=== PATIENT | male | born 1950 | race Caucasian/White ===

== ENCOUNTER 2018-04-25 22:53 | Emergency (ER) | payer OTHER, SELFPAY ==
[2018-04-25 22:53] VITALS: BP 126/72; PULSE 79; RESP 18; TEMP 37.1; TEMP 37.6; O2SAT 98; BMI 26.4
--- NOTE | 2018-04-25 23:14 | ED.VISSUMM ---
- ER Visit Summary Date of Service: 04/25/18 Chief Complaint: Right-sided abdominal pain History of Present Illness: The patient is a 67 M with right-sided abdominal pain that started yesterday. Pain has become much more severe in the last 24 hours. Denies change in pain when he eats. He has not eaten in 8 hours. He denies nausea, vomiting, or diarrhea. He does report a fever to 101 this evening. Past history significant for bariatric surgery 10 years ago. He states he had a duodenal switch. He also has a history of atrial fibrillation and underwent ablation earlier this year. He is no longer on anticoagulants. Physical Examination: Vital signs are unremarkable. Patient sitting upright in bed. He appears uncomfortable but he is in no acute distress. Head neck examination is normal. Heart is regular rate and rhythm. Lung sounds are clear. Abdomen is soft with tenderness in the right abdomen, both upper and lower quadrants. There is no guarding or rebound. Hypoactive bowel sounds are noted. Test Results: CBC was normal white count. Hemoglobin is 12.4. Chemistry studies are normal. LFTs are significant for an AST of 40 and an alk phos of 142. Lipase is normal. Urinalysis is unremarkable. Portable chest x-ray shows bilateral basilar atelectasis. Emergency Department Course and Treatment: Patient was treated morphine, Zofran, and IV fluids. On repeat evaluation he stated his abdominal pain was not really improved, but his limbs felt heavy from the morphine. He was offered another dose and it was ordered. On repeat vital sign check temperature is now 100.6. Tylenol is ordered for fever. CT scan of the abdomen and pelvis is obtained and per my read reveals emphysematous cholecystitis. He has air in the posterior wall of the gallbladder. There is significant pericholecystic fluid. I spoke with both surgery groups here at [place] who feel patient should be transferred. Patient has been accepted at [facility]. Treatment Plan: [] Disposition: Transfer Impression: Emphysematous cholecystitis This note was generated with [employer] dictation software. It may contain incorrect words, spelling, and punctuation that were not noted in review of the chart prior to signing ED Disposition - Plan for ED Patient: Chief Complaint: Abd Pain Referrals: Care Physician,No Primary [Primary Care Provider] -
[2018-04-25] MEDS: Ondansetron 4 MG/2 ML Vial IV (23:23)
[2018-04-25] MEDS: 0.9% Normal Saline 1,000 ML 150 ML IV (23:23)
[2018-04-25] MEDS: Morphine 4 MG/ML Syringe IV (23:23)
[2018-04-25 23:32] LABS: Absolute Lymphocyte Count 0.76 X10^3/ul (0.83-4.51); Absolute Neutrophil Count 7.9 X10^3/uL (2.0-7.7); Basophil# 0.05 X10^3/uL; Basophil% 0.5 % (0-1); Eosinophil# 0.46 X10^3/uL; Eosinophils% 4.2 % (0-5); Hematocrit 37.4 % (40-54); Hemoglobin 12.4 g/dl (13.0-16.5); Lymphocyte # 0.76 X10^3/ul (4.0); Mean Corp Hgb Conc 33.2 g/gl (32-36); Mean Corpuscular Hgb 29.6 pg (27.0-32.0); Mean Corpuscular Volume 89.3 fL (80-94); Mean Platelet Vol. 10.5 fl (6.2-12.0); Monocyte% 15.7 % (0-10); Neutrophil # 7.87 X10^3/uL (2.7-7.7); Neutrophil % 72.5 % (47-70); Platelet Count 213 K/mm3 (150-450); RBC Distribution Width CV 15.5 % (11.6-14.6); RBC Distribution Width SD 50.6 fl (35.1-43.9); Red Blood Count 4.19 M/mm3 (4.6-6.2); White Blood Count 10.9 K/mm3 (4.4-11.0)
[2018-04-25 23:34] LABS: Differential Indicated SCAN CRITERIA MET; POSITIVE COUNT NO; POSITIVE DIFFERENTIAL YES; POSITIVE MORPHOLOGY NO
[2018-04-25 23:39] LABS: Bacteria 0 SEEN /hpf (None Seen); Mucous, Urine 0 SEEN /hpf (<or=2+); Red Blood Cells-Urine 0 SEEN /hpf (0-5); White Blood Cells 0 SEEN /hpf (0-5)
[2018-04-25 23:43] LABS: AST(SGOT) 40 U/L (15-37); Alanine Aminotransfer ALT/SGPT 32 U/L (16-61); Albumin, Serum 3.3 g/dL (3.2-5.0); Alkaline Phosphatase 142 U/L (45-117); Anion Gap 8 (5-15); BUN 16 mg/dL (7-18); BUN/Creat Ratio 14.3 RATIO (10-20); Bilirubin, Direct 0.13 mg/dL (0.00-0.30); Calcium,Total 8.5 mg/dL (8.5-10.1); Chloride 105 mmol/L (98-107); Creatinine, Serum 1.12 mg/dL (0.70-1.30); EST Glomerular Filtration Rate 69 mL/min (>60); Est Glom Filt Rate - Afr Amer 84 mL/min (>60); Estimated Creatinine Clearance 67.23 ml/min; Globulin 4.5 g/dL (2.2-4.2); Glucose 98 mg/dL (74-106); Lipase 116 U/L (73-393); Potassium 4.7 mmol/L (3.5-5.1); Protein, Total 7.8 g/dL (6.4-8.2); Sodium Level 136 mmol/L (136-145)
[2018-04-25 23:45] LABS: Color, Urine Yellow (Yellow); Glucose, Dipstick Normal (Normal); Ketone-Dipstick Negative (Negative); Leukocyte Esterase-Dipstick Negative /ul (Negative); Nitrite-Dipstick Negative (Negative); Occult Blood-Urine Negative /ul (Negative); Protein-Dipstick 15 mg/dl (Negative); Specific Gravity, Urine 1.015 (1.002-1.030); Urine Bilirubin Dipstick Negative (Negative); Urine Clarity Clear (Clear); Urine Urobilinogen Normal (Normal)
[2018-04-25 23:54] LABS: Squamous Epithelial Cells - UA 0-5 SEEN /hpf (0-5)
[2018-04-26] VITALS (12 sets, daily range): BP systolic 90–136; BP diastolic 59–82; PULSE 69–85; RESP 17–21; TEMP 37.1–38.1; O2SAT 92–95
[2018-04-26] MEDS: Morphine 4 MG/ML Syringe IV (00:18)
[2018-04-26] MEDS: Acetaminophen 325 MG Tablet 650 MG PO (00:27)
--- NOTE | 2018-04-26 00:30 | RAD_ITS ---
STUDY: X-RAY CHEST REASON FOR EXAM: Male, 67 years old. Abdominal pain. TECHNIQUE: Single AP portable view of the chest. COMPARISON: Prior comparison studies are not available for review at this time. FINDINGS: Cardiac monitoring leads are present. The lungs are underexpanded with crowding the bronchovascular markings and obscuration of lung bases. There is suggestion for bilateral basilar airspace disease and/or atelectasis. There is no demonstrated pleural abnormality. There is borderline cardiomegaly. Normal mediastinum and waldemar. There is prominence of the pulmonary hilar arteries without peripheral pulmonary vascular congestion. There is atherosclerotic calcification of the aortic arch with tortuosity. There is demineralization of the osseous structures. Normal visualized ribs, clavicles, and shoulders. There is no demonstrated abnormality of the visualized soft tissue structures of the upper abdomen. RAD/Chest 1 View (Portable) IMPRESSION: Expiratory chest radiograph with bilateral basilar atelectasis and/or airspace disease. Electronically Signed: Melia Cortes MD at 1:26 EDT , Service support ,
--- NOTE | 2018-04-26 00:50 | CT_ITS ---
STUDY: CT ABDOMEN AND PELVIS WITH CONTRAST REASON FOR EXAM: Male, 67 years old. Right-sided abdominal pain for 24 hours. Patient had bariatric surgery 10 years ago. RADIATION DOSAGE (If Supplied By Facility): CTDIvol = ( 18.71 ) mGy, DLP = ( 1174.16 ) mGycm TECHNIQUE: Transaxial images were obtained from the dome of the diaphragm to the symphysis pubis without oral contrast. 100 ml of Isovue 300 contrast was administered. Sagittal and coronal images were reconstructed. Individualized dose optimization techniques were used for this CT. COMPARISON: Prior comparison studies are not available for review at this time. FINDINGS: There is bilateral basilar airspace consolidation and atelectasis. The visualized portions of the heart are within normal limits. There is mild periportal edema within the liver. This may be the result of hepatitis or overhydration. No liver masses are identified. The gallbladder is very distended. There is pericholecystic fluid and enhancement gallbladder wall suggesting sequela of acute cholecystitis. Multiple gallstones are visualized. Normal spleen. There is diffuse atrophy of the pancreas. Normal bilateral adrenal glands. There are multiple nonobstructing renal calculi with the largest measuring approximately 6.7 mm. There are small lucencies visible within both kidneys that may represent tiny cysts. There is focal parenchymal loss from the upper pole of the right kidney that may be the result of previous ischemia or infection. There is no obvious hydronephrosis, hydroureter or radiopaque ureteral calculus. There is a small hiatal hernia. There is no evidence for dilated bowel, ascites or pneumoperitoneum. Surgical sutures are visible in the stomach is consistent with history of bariatric surgery. The small bowel has a grossly normal appearance. There is stool visible throughout the colon. The appendix is visualized and appears normal. Medulla aorta is mildly tortuous. Normal inferior vena cava. Normal retroperitoneum. Normal urinary bladder. There are prostatic calcifications. There appears to be a left-sided inguinal hernia containing small bowel. This could represent an incarcerated hernia. There is no evidence for dilated bowel. There is multilevel thoracic spondylosis. There are multilevel degenerative changes of the lumbar spine. CT/Abdomen/Pelvis WITH Contrast IMPRESSION: 1. CT findings suggest sequela of acute cholecystitis. 2. Possible fecal stasis. 3. Left inguinal hernia with incarcerated small bowel. 4. Nonobstructing renal calculi. Electronically Signed: Melia Cortes MD at 2:14 EDT , Service support ,
--- NOTE | 2018-04-26 01:33 | NURSING ---
[facility] PAGED AT [address] HERRREA.
[2018-04-26] MEDS: HYDROmorphone 0.5 MG/0.5 ML SYRINGE IV (01:44)
[2018-04-26] MEDS: 0.9% Normal Saline 1,000 ML 500 ML IV (03:04)
--- NOTE | 2018-04-26 03:04 | ED.RN ---
PER DR. SHARON NELSON A 1000 CC'S NS BOLUS D/T LOW BLOOD PRESSURE OF 97/65. NS BOLUS HUNG BY THIS NURSE.
--- NOTE | 2018-04-26 03:40 | ED.RN ---
[facility] CAME TO GET PATIENT BUT THEY WERE NOT A [facility] SO THEY COULD NOT TAKE PATIENT NOW THAT WE HAVE FLUIDS RUNNING TO MAINTAIN HIS BLOOD PRESSURE.
--- NOTE | 2018-04-26 03:41 | ED.RN ---
[facility] CALLED A [facility] TO COME AND GET HIM.
[2018-04-26] MEDS: 0.9% Normal Saline 1,000 ML 250 ML IV (04:07)
[2018-04-26] MEDS: fentaNYL 100 MCG/2 ML Ampul 25 MCG IV (04:30)
--- NOTE | 2018-04-26 04:38 | NURSING ---
SUBLIMAZE 25 MCG WAS GIVEN PRIOR TO LEAVING WITH THE [facility] FOR PAIN LEVEL 8/10. [facility] AWARE AND WILL REPORT TO ED WHEN IT WAS GIVEN.
== END 2018-04-26 04:31 | disposition short-term general hospital (02) ==
PROVIDERS: Emergency Provider Emergency Medicine
DX: K81.0 Acute cholecystitis (principal); Z98.84 Bariatric surgery status; Z87.891 Personal history of nicotine dependence; Z79.899 Other long term (current) drug therapy
CPT/HCPCS: 71045; 74177; 80048; 80076; 81001; 83690; 85025; 96361; 96365; 96375; 96376; 99285; J7030; Q9967; A4216; J2405